=== PATIENT | female | born 1955 | race Caucasian/White ===

== ENCOUNTER 2017-01-05 15:11 | Emergency (ER) | payer MEDICAID ==
[~2017-01-05] VITALS: Ht 160 cm; Wt 65.0 kg
[2017-01-05] MEDS ORDERED: LEVO125T PO (15:16)
[2017-01-05] MEDS ORDERED: IBUPROFEN 400MG TABLET PO ONE (18:00)
[2017-01-05 20:28] VITALS: BP 118/69
== END 2017-01-05 20:29 | disposition home or self-care (01) ==
LOC: ER 17:56
DX: M54.5 Low back pain (principal); M79.605 Pain in left leg; E07.9 Disorder of thyroid, unspecified; W01.0XXA Fall on same level from slipping, tripping and stumbling without subsequent striking against object, initial encounter; Y93.89 Activity, other specified; Y92.512 Supermarket, store or market as the place of occurrence of the external cause
CPT/HCPCS: 72100; 73552; 99284

== ENCOUNTER 2019-05-08 18:52 | Emergency (ER) | payer MEDICAID, OTHER ==
[~2019-05-08] VITALS: Ht 165.1 cm; Wt 63.0 kg
[~2019-05-08 18:52] MED LIST: LEVO125T PO
[2019-05-08] MEDS ORDERED: IBUPROFEN 800MG TABLET PO ONE (21:45)
[2019-05-08] MEDS ORDERED: CEFTRIAXONE SODIUM 1 G/VIAL IM ONE (22:00)
[2019-05-08 22:55] VITALS: BP 124/75
== END 2019-05-08 23:01 | disposition home or self-care (01) ==
LOC: ER 18:52
DX: L03.114 Cellulitis of left upper limb (principal); E89.0 Postprocedural hypothyroidism
CPT/HCPCS: 73130; 96372; 99283; J0696